=== PATIENT | male | born 1970 | race Caucasian/White ===

== ENCOUNTER → 2020-04-03 | Outpatient (CLI) | payer BC ==
--- NOTE | 2020-04-03 14:01 | REP ---
KNEE: REASON: pain. FINDINGS: The compartments are symmetric and relatively well maintained. There is no acute fracture or destructive osseous lesion. Electronically Signed by Garo Guerin DO 04/03/2020 02:14 P
== END ==
LOC: M WUC 13:02
PROVIDERS: ATTEND Physician Assistant
DX: M25.561 Pain in right knee (principal)